=== PATIENT | female | born 1980 | race Caucasian/White ===

== ENCOUNTER → 2018-04-14 | Outpatient (CLI) | payer BC ==
--- NOTE | 2018-04-14 14:13 | US ---
EXAMINATION TYPE: US pelvis complete transvag DATE OF EXAM: 04/14/2018 COMPARISON: March 02, 2016 CLINICAL HISTORY: N92.6Irregular menstruation, unspecified. Stopped control. Hx of endometrios is. Irregular menses. Hx of fibroid. TECHNIQUE: Transvaginal (TV) and Transabdominal (TA) . Transabdominal sonographic images of the pel vis were acquired. Transvaginal sonographic images were medically necessary to better assess the fol lowing anatomy: Endometrium and ovaries Date of LMP: 03/30/2018, G0 EXAM MEASUREMENTS: Uterus: 7.1 x 4.5 x 3.1 cm Endometrial Stripe: 0.4 cm Right Ovary: 4.0 x 3.3 x 2.1 cm Left Ovary: 3.2 x 2.3 x 2.4 cm 1. Uterus: Anteverted Two hypoechoic lesions seen. 2- posterior midline = 1.0 x 0.6 cm. 2= Anter ior left- 0.8 x 1.1 x 0.7 cm 2. Endometrium: wnl 3. Right Ovary: Hypoechoic lesion - 2.3 x 2.8 x 2.3 cm 4. Left Ovary: two cystic appearing lesions seen, largest= 1.9 x 2.0 x 1.2 cm 5. Bilateral Adnexa: wnl 6. Posterior cul-de-sac: no free fluid Cervix- vascular isoechoic possible lesion - 0.9 x 0.7 x 0.5 cm IMPRESSION: 1. Leiomyomatous change of the uterus. 2. Complex right ovarian cystic lesion. This may reflect a hemorrhagic cyst however follow-up study i n 6 weeks can be performed for confirmation purposes.
== END | disposition home or self-care (01) ==
LOC: RADUSWWP 12:55
PROVIDERS: ATTEND Family Medicine
DX: D25.9 Leiomyoma of uterus, unspecified (principal); N83.201 Unspecified ovarian cyst, right side
CPT/HCPCS: 76830; 76856

== ENCOUNTER → 2018-05-05 | Outpatient (CLI) | payer BC ==
--- NOTE | 2018-05-07 14:46 | MR ---
EXAMINATION TYPE: MR knee LT wo con DATE OF EXAM: 05/05/2018 COMPARISON: Plain film 04/14/2008 HISTORY: Lt knee pain TECHNIQUE: Multiplanar, multisequence imaging of the knee is performed without IV contrast. FINDINGS: MEDIAL MENISCUS: Some increased signal is present in the posterior horn the medial meniscus, clear ex tension to the articular surface is not identified with certainty LATERAL MENISCUS: Anterior and posterior horns are intact without tear. CRUCIATE LIGAMENTS: The anterior and posterior cruciate ligaments are intact and unremarkable. COLLATERAL LIGAMENTS: The medial collateral ligament and lateral collateral ligament complex are inta ct and unremarkable. EXTENSOR MECHANISM: Visualized quadriceps and patellar tendons are intact. EFFUSION: Minimal effusion POPLITEAL CYST: There is a semimembranosus gastrocnemius cyst measuring approximately 6 0.4 x 2.2 x 1.6 cm. TRICOMPARTMENT SPACES: Maintained CARTILAGE: Question some irregularity of the patellar cartilage posteriorly, grade 2 to grade III cho ndromalacia BONE MARROW SIGNAL: Maintained OTHER: No additional significant abnormality is appreciated. IMPRESSION: Question abnormal cartilage at the posterior patella, local fluid present. Cornejo's cyst.
== END | disposition home or self-care (01) ==
LOC: RADMRIMAIN 20:33
PROVIDERS: ATTEND Orthopaedic Surgery
DX: M71.22 Synovial cyst of popliteal space [Baker], left knee (principal); M25.462 Effusion, left knee

== ENCOUNTER → 2018-06-12 | Outpatient (CLI) | payer BC ==
--- NOTE | 2018-06-12 13:55 | US ---
EXAMINATION TYPE: US pelvic complete DATE OF EXAM: 06/12/2018 COMPARISON: 04/14/2018 CLINICAL HISTORY: 37-year-old female N80.0 Endometriosis,N92.6 Irregular Menstruation. TECHNIQUE: Transabdominal (TA Date of LMP: 05/24/2018 FINDINGS: EXAM MEASUREMENTS: Uterus: 7.6 x 3.4 x 4.8 cm Endometrial Stripe: 1.2 cm Right Ovary: 4.5 x 3.7 x 2.8 cm Left Ovary: 2.7 x 3.5 x 2.3 cm 1. Uterus: Anteverted. There is a small subserosal fibroid along the posterior aspect of the uteri ne body that measures 1.2 x 0.8 x 1.2 cm 2. Endometrium: wnl 3. Right Ovary: cyst measures 2.8 x 2.7 x 2.2 cm. A hypoechoic lesion previously measured 2.8 x 2.2 x 2.3 cm. 4. Left Ovary: wnl 5. Bilateral Adnexa: wnl 6. Posterior cul-de-sac: no free fluid IMPRESSION: 1. Stable small 1.2 cm subserosal fibroid along the posterior uterine body. 2. A 2.8 cm dominant follicle or functional cyst in the right ovary.
== END ==
LOC: RADUSWWP 10:26
PROVIDERS: ATTEND Family Medicine
DX: D25.2 Subserosal leiomyoma of uterus (principal); N83.201 Unspecified ovarian cyst, right side
CPT/HCPCS: 76856

== ENCOUNTER → 2018-09-04 | Outpatient (CLI) | payer BC ==
[2018-09-04 07:54] LABS: Basophils % (A) 0 %; Eosinophils # (A) 0.1 k/uL (0-0.7); Eosinophils % (A) 2 %; HCT 42.3 % (34.0-46.0); HGB 13.7 gm/dL (11.4-16.0); Lymphocytes # (A) 3.2 k/uL (1.0-4.8); Lymphocytes % (A) 55 %; MCH 28.7 pg (25.0-35.0); MCHC 32.3 g/dL (31.0-37.0); MCV 88.8 fL (80.0-100.0); Mean Platelet Volume 7.5; Monocytes # (A) 0.2 k/uL (0-1.0); Monocytes % (A) 4 %; Neutrophils # (A) 2.3 k/uL (1.3-7.7); Neutrophils % (A) 39 %; Platelet Count 212 k/uL (150-450); RBC 4.76 m/uL (3.80-5.40); RDW 12.9 % (11.5-15.5); WBC 5.8 k/uL (3.8-10.6)
== END | disposition home or self-care (01) ==
LOC: LABPAT 06:49
PROVIDERS: ATTEND Obstetrics & Gynecology
DX: Z01.812 Encounter for preprocedural laboratory examination (principal)
CPT/HCPCS: 36415; 85025

== ENCOUNTER 2018-09-14 06:00 | Day surgery (SDC) | payer BC ==
[2018-09-12 12:52] VITALS: BMI 25.0
--- NOTE | 2018-09-13 16:27 | P.HPOB ---
History of Present Illness H&P Date: 09/13/18 Chief Complaint: Endometriosis: Pelvic pain Karina is a 37-year-old female who has chronic pelvic pain. She has failed outpatient therapy with nonsteroidal anti-inflammatories control pills. She is scheduled for a diagnostic laparoscopy possible robotic-assisted removal of endometriosis. Risks/benefits/alternatives to this procedure were discussed with the patient in detail and all questions were answered for her prior to proceeding to the operating room. We did discuss potentially empiric Lupron Depot versus Depo-Provera push versus IUD versus continuous OCP however she would like surgical verification of the disease process. All questions were answered for her prior to proceeding to the operating room. On physical exam vital signs are stable and afebrile. Heart regular, lungs clear, extremities without pain. Abdomen soft nontender with some mild pelvic pain. No other gross findings are noted. Past Medical History Past Medical History: No Reported History History of Any Multi-Drug Resistant Organisms: None Reported Additional Past Surgical History / Comment(s): RIGHT FOOT SURGERY X 2 , BILATERAL FOOT SURGERY X2, LAPAROSCOPIC EXAM X2 Past Anesthesia/Blood Transfusion Reactions: No Reported Reaction Smoking Status: Never smoker - Past Family History Mother Family Medical History: No Reported History Medications and Allergies Home Medications Medication Instructions Recorded Confirmed Type Acetaminophen Tab [Tylenol Tab] 650 mg PO Q4H PRN 09/12/18 09/12/18 History Cyanocobalamin (Vitamin B-12) 1,000 mcg PO DAILY 09/12/18 09/12/18 History [Vitamin B-12] Ibuprofen [Motrin] 800 mg PO Q8H PRN 09/12/18 09/12/18 History Multivitamin [Multivitamins Adult 1 each PO DAILY 09/12/18 09/12/18 History Gummies] Allergies Allergy/AdvReac Type Severity Reaction Status Date / Time celecoxib [From Celebrex] Allergy BLEEDING Verified 09/12/18 12:18 FROM PORES" Penicillins Allergy Rash/Hives, Verified 09/12/18 12:16 SWELLING OF THROAT Exam Osteopathic Statement: *. No significant issues noted on an osteopathic structural exam other than those noted in the History and Physical/Consult.
[~2018-09-14 06:00] MED LIST: DEXAMETHASONE SOD PHOSPHATE 10 MG/ML 1 ML VIAL IV ONE; MIDAZOLAM (PF) 2 MG/2 ML VIAL IV PRN; ONDANSETRON 4 MG/2 ML VIAL IVP ONE; Pre Op ABX Message 1 EACH MISC MISCELLANE ONE; SCOPOLAMINE 1.5MG/72HR PATCH TRANSDERM ONE
[2018-09-14] MEDS: LACTATED RINGERS 1,000 ML IV SCH ×2 (06:34→10:33)
[2018-09-14] MEDS ORDERED: LIDOCAINE 1% 20 ML VIAL (10MG/ML) FOR IV START INTRADERMA ONE (06:35)
[2018-09-14] MEDS ORDERED: PROPOFOL 10 MG/ML 20 ML VIAL IV ONE (07:31)
[2018-09-14] MEDS ORDERED: DEXAMETHASONE SOD PHOS (MDV) 100 MG/10 ML VIAL ONE (07:31)
[2018-09-14] MEDS ORDERED: ROCURONIUM BROMIDE 10 MG/ML 10 ML VIAL IV ONE (07:31)
[2018-09-14] MEDS ORDERED: fentaNYL (PF) 50 MCG/ML 2 ML AMP ONE (07:31)
[2018-09-14] MEDS ORDERED: MIDAZOLAM 2 MG/2 ML VIAL ONE (07:31)
[2018-09-14] MEDS ORDERED: ONDANSETRON 4 MG/2 ML VIAL ONE (07:31)
[2018-09-14] MEDS ORDERED: LIDOCAINE 1% INJ 10MG/ML (20 ML MDV) ONE (07:31)
[2018-09-14] MEDS ORDERED: NEOSTIGMINE 1 MG/ML 10 ML VIAL ONE (07:31)
[2018-09-14] MEDS ORDERED: GLYCOPYRROLATE 0.2 MG/ML 2 ML VIAL ONE (07:31)
[2018-09-14] MEDS ORDERED: BUPIVACAINE (PF) 0.25% 30 ML VIAL SQ ONE (08:00)
--- NOTE | 2018-09-14 08:33 | P.OP ---
Date of Procedure: 09/14/18 Preoperative Diagnosis: Pelvic pain: History of endometriosis Postoperative Diagnosis: Same with stage I endometriosis and right ovarian cyst Procedure(s) Performed: Diagnostic laparoscopy with electrofulguration of endometriosis and cystotomy of right ovarian cyst Anesthesia: EDUARDO Surgeon: Geraldo Garrett Estimated Blood Loss (ml): 2 IV fluids (ml): 600 Urine output (ml): 100 Pathology: none sent Condition: stable Disposition: same day Operative Findings: Stage I endometriosis with approximately 6-7 individual lesions. There was a red lesion in the deep cul-de-sac. There was powder burn lesions on both the right and left uterosacral ligaments and then a few scattered cystic lesions. All of visualize lesions were electrofulgurated Description of Procedure: Patient was taken to the operating suite where a general anesthetic was found be adequate. She was prepped and draped in normal sterile fashion and placed in the dorsal lithotomy position. Initially a speculum was inserted into the vagina and anterior lip of the cervix was identified and grasped with a single- tooth tenaculum. Cervix was then sounded to 8 cm and dilated. Manipulator was then inserted without difficulty and a red rubber catheter was placed. Other incidents removed from the vagina and gloves were changed. Attention was then turned to the abdominal portion procedure where 2 mL of quarter percent Marcaine was injected periumbilically. Through this injected anesthetic a 5 mm skin incision was made and through this incision under direct visualization with an optical trocar and sleeve the camera was inserted. Once peritoneal placement was assured gas was left fully insufflate the abdomen and patient was then placed in steep Trendelenburg position. A second 5 mm skin incision was then made approximately 10 cm lateral to the umbilicus on the left-hand side and a 5 mm trocar and sleeve were inserted. Observations the pelvis were then done. All endometrial implants that were visualized were electrofulgurated. There was a cyst on the right ovary which was grasped with a J-hook and using blunt dissection it was drained. J-hook was also used for the electrode fulguration. Once this was completed seeing no other lesions or abnormalities other than incidental finding of fibroid in the posterior uterus and a pedunculated anterior fibroid. Incidents were removed. Gas was allowed to expel from the abdomen 5 deep breaths were provided. Once this was completed 4- 0 Vicryl was used to close incision subcuticularly and the remaining quarter percent Marcaine was then injected around these incisions. Instruments were then removed from vagina. Sponge, lap, needle counts were all correct 2. Patient was then taken to the recovery room in stable and satisfactory condition. Plan - Discharge Summary Discharge Rx Participant: Yes New Discharge Prescriptions: New Acetaminophen-Codeine 300-30mg [Tylenol #3] 1 tab PO Q4H PRN #30 tablet PRN Reason: Pain Ibuprofen [Motrin] 600 mg PO Q6HR PRN #30 tab PRN Reason: Pain No Action Cyanocobalamin (Vitamin B-12) [Vitamin B-12] 1,000 mcg PO DAILY Acetaminophen Tab [Tylenol Tab] 650 mg PO Q4H PRN PRN Reason: Pain Multivitamin [Multivitamins Adult Gummies] 1 each PO DAILY Ibuprofen [Motrin] 800 mg PO Q8H PRN PRN Reason: Pain Discharge Medication List Acetaminophen Tab [Tylenol Tab] 650 mg PO Q4H PRN 09/12/18 [History] Cyanocobalamin (Vitamin B-12) [Vitamin B-12] 1,000 mcg PO DAILY 09/12/18 [ History] Ibuprofen [Motrin] 800 mg PO Q8H PRN 09/12/18 [History] Multivitamin [Multivitamins Adult Gummies] 1 each PO DAILY 09/12/18 [History] Acetaminophen-Codeine 300-30mg [Tylenol #3] 1 tab PO Q4H PRN #30 tablet [Rx] Ibuprofen [Motrin] 600 mg PO Q6HR PRN #30 tab 09/14/18 [Rx] Follow up Appointment(s)/Referral(s): Geraldo Garrett DO [Doctor of Osteopathic Medicine] - 10 Days Activity/Diet/Wound Care/Special Instructions: No heavy lifting, limit stairs and driving, and pelvic rest. If any high temperatures, heavy bleeding, or severe pain call my office Discharge Disposition: HOME SELF-CARE
[2018-09-14 08:34] VITALS: TEMP 98
[2018-09-14] MEDS: HYDROmorphone 0.5 MG/0.5 ML SYRINGE IVP PRN ×4 (08:39→09:00)
[2018-09-14 08:49] VITALS: RESP 16
[2018-09-14] MEDS ORDERED: PROMETHAZINE INJ 25 MG/ML 1 ML VIAL IVPB ONE (08:53)
[2018-09-14] MEDS ORDERED: Acetaminophen-Codeine 300-30mg TAB PO ONE (11:27)
[2018-09-14 11:39] VITALS: BP 110/66; PULSE 62
== END 2018-09-14 12:19 | disposition home or self-care (01) ==
LOC: OR 06:00
PROVIDERS: ATTEND Obstetrics & Gynecology
DX: N80.9 Endometriosis, unspecified (principal); N83.201 Unspecified ovarian cyst, right side; G89.29 Other chronic pain; D25.9 Leiomyoma of uterus, unspecified; Z88.0 Allergy status to penicillin; Z88.2 Allergy status to sulfonamides; Z88.6 Allergy status to analgesic agent
CPT/HCPCS: 81025; 58662; 49322; 57800; J2250; J1100 ×2; J2550; J2710; J2405; J2001; J3010; J2704; J1170

== ENCOUNTER → 2019-03-02 | Outpatient (CLI) | payer BC ==
--- NOTE | 2019-03-03 09:27 | MR ---
EXAMINATION TYPE: MR knee RT wo con DATE OF EXAM: 03/02/2019 COMPARISON: Outside x-ray dated 02/16/2019 HISTORY: RT knee pain, outside films on pacs TECHNIQUE: Multiplanar, multisequence imaging of the right knee is performed without IV contrast. FINDINGS: There is a moderate suprapatellar bursal fluid collection. Patellar and quadriceps tendons are intact. Abnormal signal within the fluid could be associated with medial plica syndrome. There is fibrillation and chondromalacia patellar cartilage. Retinaculum intact. Narrowing the latera l patellar facet particularly noted. There is marrow edema or contusion involving the patella Anterior cruciate and posterior cruciate ligaments have a normal appearance. Medial collateral and la teral collateral ligaments have a normal appearance. Popliteus tendon intact. No sizable popliteal fossa cyst. No diagnostic evidence of meniscal tear. Intrasubstance signal poste rior horn medial meniscus most typical of myxoid degeneration. IMPRESSION: 1. No evidence of ligamentous or meniscal tear. Findings involving posterior horn medial meniscus mos t typical of myxoid degeneration. 2. Moderate-sized suprapatellar bursal fluid collection. There is grade II chondromalacia involving t he patellar cartilage with loss of joint space of the lateral patellar facet. No erosive changes. Mar row edema throughout the patella could be reactive. Correlate for bone contusion. No fracture identif ied. 3. Correlate for medial plica syndrome.
== END | disposition home or self-care (01) ==
LOC: RADMRIMAIN 20:22
PROVIDERS: ATTEND Orthopaedic Surgery
DX: M22.41 Chondromalacia patellae, right knee (principal); M23.321 Other meniscus derangements, posterior horn of medial meniscus, right knee; M25.861 Other specified joint disorders, right knee

== ENCOUNTER → 2019-06-15 | Outpatient (CLI) | payer BC ==
[2019-06-15 10:24] LABS: Basophils % (A) 0 %; Eosinophils % (A) 1 %; HGB 13.7 gm/dL (11.4-16.0); Lymphocytes # (A) 2.4 k/uL (1.0-4.8); Lymphocytes % (A) 47 %; MCH 29.2 pg (25.0-35.0); MCHC 33.5 g/dL (31.0-37.0); MCV 87.2 fL (80.0-100.0); Mean Platelet Volume 7.4; Monocytes # (A) 0.2 k/uL (0-1.0); Monocytes % (A) 4 %; Neutrophils # (A) 2.4 k/uL (1.3-7.7); Neutrophils % (A) 47 %; Platelet Count 230 k/uL (150-450); RDW 12.8 % (11.5-15.5)
[2019-06-15 10:27] LABS: Potassium 4.1 mmol/L (3.5-5.1)
== END | disposition home or self-care (01) ==
LOC: LABPAT 09:52
PROVIDERS: ATTEND Orthopaedic Surgery
DX: Z01.812 Encounter for preprocedural laboratory examination (principal); M23.91 Unspecified internal derangement of right knee
CPT/HCPCS: 36415; 80051; 85025

== ENCOUNTER 2019-07-05 12:39 | Day surgery (SDC) | payer BC ==
[2019-07-03 15:11] VITALS: BMI 28.8
--- NOTE | 2019-07-04 18:54 | HP ---
HISTORY AND PHYSICAL DATE OF SURGERY: 07/05/2019 Karina Meza is a 38-year-old patient seen with progressive right knee pain. We discussed options for treatment. She elected to proceed with arthroscopy. Consent was obtained. PAST MEDICAL HISTORY: Past medical history is noncontributory. PAST SURGICAL HISTORY: Foot surgery. DAILY MEDICATIONS: Ibuprofen. ALLERGIES: PENICILLIN, SULFA. SOCIAL HISTORY: She denies tobacco use. PHYSICAL EVALUATION OF THE RIGHT KNEE: Range of motion is +3 to 125. There is a mild to moderate effusion present. Tenderness along the medial joint line. Positive medial Najma's. Ligaments are stable. Hip rotation is without pain. Distal neurovascular examination is intact. IMAGING: Radiographs of the right knee revealed mild osteoarthritic changes. Right knee MRI revealed joint effusion, patellar chondromalacia, abnormal signal within the posterior medial meniscus. IMPRESSION: Internal derangement of right knee with medial meniscal tear versus osteochondral tear. PLAN: Right knee arthroscopy with partial meniscectomy, possible chondroplasty and probable partial synovectomy. MMODL / IJN: [id number] /
[~2019-07-05 12:39] MED LIST changes: +CLINDAMYCIN 900 MG in DEXTROSE 5% IN WATER 50 ML IVPB ONE; +LACTATED RINGERS 1,000 ML IV SCH; -MIDAZOLAM (PF) 2 MG/2 ML VIAL IV PRN; +MIDAZOLAM 2 MG/2 ML VIAL IV PRN; -ONDANSETRON 4 MG/2 ML VIAL IVP ONE
[2019-07-05] MEDS: ONDANSETRON 4 MG/2 ML VIAL IVP ONE ×2 (13:15→15:09)
[2019-07-05] MEDS ORDERED: fentaNYL (PF) 50 MCG/ML 2 ML AMP ONE (14:14)
[2019-07-05] MEDS ORDERED: HYDROmorphone (PF) 1 MG/ML ONE (14:14)
[2019-07-05] MEDS ORDERED: PROPOFOL 10 MG/ML 20 ML VIAL IV ONE (14:14)
[2019-07-05] MEDS ORDERED: MIDAZOLAM 2 MG/2 ML VIAL ONE (14:14)
[2019-07-05] MEDS ORDERED: LIDOCAINE 1% INJ 10MG/ML (20 ML MDV) ONE (14:14)
[2019-07-05] MEDS ORDERED: BUPIVACAIN-EPI 0.25%-1:200,000 30 ML VIAL INTRAARTIC ONE (14:19)
[2019-07-05 14:59] VITALS: TEMP 97
[2019-07-05] MEDS: HYDROmorphone 1 MG/ML 1 ML SYRINGE IVP ONE ×4 (15:00→15:33)
--- NOTE | 2019-07-05 15:01 | P.OP ---
Date of Procedure: 07/05/19 Preoperative Diagnosis: Internal derangement right knee Postoperative Diagnosis: 1. Tear medial meniscus right knee 2. Grade 2 chondromalacia medial femoral condyle right knee 3. 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 Reactive synovitis medial, lateral and suprapatellar compartments right knee Procedure(s) Performed: 1. Arthroscopic partial medial meniscectomy right knee 2. Arthroscopic chondroplasty medial femoral condyle right knee 3. Arthroscopic chondroplasty patella right knee 4. Arthroscopic partial synovectomy medial, lateral and suprapatellar compartments right knee Anesthesia: ELIZABETHA, local Surgeon: Kin Raymundo Estimated Blood Loss (ml): 5 Pathology: none sent Condition: stable Disposition: PACU Indications for Procedure: 38-year-old patient seen with progressive right knee pain. After treatment options were discussed, she elected to proceed with arthroscopy. Operative Findings: See description of procedure Description of Procedure: Patient was taken to the operative suite. Patient underwent a general anesthetic by the department of anesthesia. Patient was given preoperative antibiotics. The right lower extremity was placed in a well-padded arthroscopic leg bryant. The right leg was prepped and draped in the normal sterile orthopedic fashion. A lateral parapatellar and suprapatellar incision was made. Trochars were inserted. Arthroscopy was initiated. Suprapatellar pouch revealed diffuse thick reactive synovitis. The patellofemoral joint appeared to articulate congruently. There was grade 3/4 chondromalacia of the patella with diffuse osteochondral tears present. The scope was guided into the medial gutter. No loose bodies or plica were identified. The scope was then guided into the medial compartment. A medial parapatellar incision was made. Trocar i nserted followed by probe. It was a radial tear posterior horn medial meniscus. There were grade 2 chondromalacia changes of the medial femoral condyle with large osteochondral flap tears present. There was thick reactive synovitis anteriorly. I performed a partial medial meniscectomy getting down to stable meniscal tissue. I performed a chondroplasty of the medial femoral condyle. I performed a partial synovectomy decompressing the thick reactive synovitis. The residual meniscus was stable. There was good decompression of the synovitis. There was good stability about the residual osteochondral surface medial femoral condyle. Scope and probe were then guided into the intercondylar notch. Cruciates were identified, probed and found to be table. The scope and probe were then guided into lateral compartment. The lateral meniscus was found to be stable. There was no significant chondromalacia. There was thick reactive synovitis anteriorly. I performed a partial synovectomy decompressing the reactive synovitis. The shaver was removed. There was good decompression of the synovitis. The scope was in guided back into the suprapatellar compartment. I introduced a motorized shaver into the suprapatellar compartment. I debrided some piecemeal fragments of meniscus I encountered. I performed a chondroplasty of the patella. I performed a partial synovectomy. Shaver was removed. There was good stability about the residual osteochondral surface of the patella. We again noted grade 3-4 chondromalacia changes there. I took one more look on the entire knee, no residual debris. Instruments were now removed from the joint. The joint was infiltrated with .25% Marcaine. Steri-Strips were applied to the portal sites. Sterile dressings were applied. The patient was placed into a PHIL hose. No tourniquet was utilized. The patient was awakened, transferred to a bed and taken to recovery stable satisfactory condition.
[2019-07-05] MEDS ORDERED: KETOROLAC 30 MG/ML 1 ML VIAL IVP ONE (15:09)
[2019-07-05] MEDS ORDERED: diphenhydrAMINE 50 MG/ML 1 ML VIAL IVP ONE (15:22)
[2019-07-05] MEDS ORDERED: HYDROcodone/APAP 5-325MG 1 EACH TAB PO ONE (16:08)
[2019-07-05 16:16] VITALS: RESP 18
[2019-07-05 17:20] VITALS: BP 105/69; PULSE 79
== END 2019-07-05 17:32 | disposition home or self-care (01) ==
LOC: OR 12:39
PROVIDERS: ATTEND Orthopaedic Surgery
DX: M23.221 Derangement of posterior horn of medial meniscus due to old tear or injury, right knee (principal); M22.41 Chondromalacia patellae, right knee; M65.861 Other synovitis and tenosynovitis, right lower leg; Z88.2 Allergy status to sulfonamides; Z88.0 Allergy status to penicillin; Z88.6 Allergy status to analgesic agent; Z79.1 Long term (current) use of non-steroidal anti-inflammatories (NSAID); Z79.3 Long term (current) use of hormonal contraceptives
CPT/HCPCS: 81025; 29881; J2250; J1200; J1100; J2405; J2001; J3010; J1885; J1170; J2704

== ENCOUNTER → 2019-09-28 | Outpatient (CLI) | payer BC ==
[2019-09-28 18:26] LABS: Potassium 4.4 mmol/L (3.5-5.1)
[2019-09-28 18:30] LABS: Basophils % (A) 0 %; Eosinophils # (A) 0.1 k/uL (0-0.7); Eosinophils % (A) 1 %; HCT 40.6 % (34.0-46.0); HGB 13.3 gm/dL (11.4-16.0); Lymphocytes # (A) 2.3 k/uL (1.0-4.8); Lymphocytes % (A) 39 %; MCH 28.4 pg (25.0-35.0); MCHC 32.8 g/dL (31.0-37.0); MCV 86.4 fL (80.0-100.0); Mean Platelet Volume 9.6; Monocytes # (A) 0.3 k/uL (0-1.0); Monocytes % (A) 5 %; Neutrophils % (A) 51 %; Platelet Count 231 k/uL (150-450); RDW 12.8 % (11.5-15.5); WBC 5.8 k/uL (3.8-10.6)
== END | disposition home or self-care (01) ==
LOC: LABPAT 16:04
PROVIDERS: ATTEND Orthopaedic Surgery
DX: Z01.812 Encounter for preprocedural laboratory examination (principal); M23.92 Unspecified internal derangement of left knee
CPT/HCPCS: 80051; 81025; 85025

== ENCOUNTER 2019-10-11 07:17 | Day surgery (SDC) | payer BC ==
[2019-10-09 12:07] VITALS: BMI 28.8
--- NOTE | 2019-10-10 20:23 | HP ---
HISTORY AND PHYSICAL DATE OF SURGERY: 10/11/2019 Karina Meza is a 39-year-old patient seen with progressive left knee pain. We discussed options for treatment. She elected to proceed with arthroscopy. Consent was obtained. PAST MEDICAL HISTORY: Noncontributory. PAST SURGICAL HISTORY: Right knee arthroscopy, foot surgery. DAILY MEDICATIONS: Ibuprofen as needed. ALLERGIES: PENICILLIN, SULFA. SOCIAL HISTORY: She denies tobacco use. PHYSICAL EVALUATION OF THE LEFT KNEE: Range of motion is 0 to 130. Tenderness, medial joint line. Positive medial Najma's. Crepitus along the patellofemoral joint with range of motion. Ligaments stable. Hip rotation without pain. Distal neurovascular exam intact. RADIOGRAPHS: Left knee radiographs revealed mild osteoarthritic changes. Left knee MRI revealed an abnormal signal through the medial meniscus suspicious for medial meniscal tear. There is also joint effusion. IMPRESSION: 1. Internal derangement of the left knee with medial meniscal tear. 2. Left knee osteoarthritis. PLAN: Left knee arthroscopy with partial meniscectomy and partial synovectomy, probable chondroplasty and debridement. MMODL / IJN: [id number] /
[~2019-10-11 07:17] MED LIST changes: -CLINDAMYCIN 900 MG in DEXTROSE 5% IN WATER 50 ML IVPB ONE; +LIDOCAINE 1% (10MG/ML) FOR IV START INTRADERMA PRN; +METOCLOPRAMIDE 5 MG/ML 2 ML VIAL IVP PRN; -MIDAZOLAM 2 MG/2 ML VIAL IV PRN; -Pre Op ABX Message 1 EACH MISC MISCELLANE ONE; -SCOPOLAMINE 1.5MG/72HR PATCH TRANSDERM ONE
[2019-10-11] MEDS: ONDANSETRON 4 MG/2 ML VIAL IVP ONE ×2 (07:57→09:20)
[2019-10-11] MEDS ORDERED: PROPOFOL 10 MG/ML 20 ML VIAL IV ONE (08:35)
[2019-10-11] MEDS ORDERED: MIDAZOLAM 2 MG/2 ML VIAL ONE (08:35)
[2019-10-11] MEDS ORDERED: SUCCINYLCHOLINE CHLORIDE 100 MG/5 ML SYR IV ONE (08:35)
[2019-10-11] MEDS ORDERED: fentaNYL (PF) 50 MCG/ML 2 ML AMP ONE (08:35)
[2019-10-11] MEDS ORDERED: LIDOCAINE 1% INJ 10MG/ML (20 ML MDV) ONE (08:35)
[2019-10-11] MEDS ORDERED: BUPIVACAIN-EPI 0.25%-1:200,000 30 ML VIAL INTRAARTIC ONE (08:35)
[2019-10-11 09:14] VITALS: TEMP 97
[2019-10-11] MEDS ORDERED: KETOROLAC 30 MG/ML 1 ML VIAL IVP ONE (09:20)
[2019-10-11] MEDS: HYDROmorphone 0.5 MG/0.5 ML SYRINGE IVP PRN ×4 (09:20→09:50)
--- NOTE | 2019-10-11 09:24 | P.OP ---
Date of Procedure: 10/11/19 Preoperative Diagnosis: Internal derangement left knee Postoperative Diagnosis: 1. Tear medial meniscus left knee 2. Grade 3 chondromalacia medial femoral condyle left knee 3. Grade 3 chondromalacia patella left knee 4. Reactive synovitis medial, lateral and suprapatellar compartments left knee Procedure(s) Performed: 1. Arthroscopic partial medial meniscectomy left knee 2. Arthroscopic chondroplasty medial femoral condyle left knee 3. Arthroscopic chondroplasty patella left knee 4. Arthroscopic partial synovectomy medial, lateral and suprapatellar compartments left knee Anesthesia: ELIZABETHA, local Surgeon: Kin Raymundo Estimated Blood Loss (ml): 7 Pathology: none sent Condition: stable Disposition: PACU Indications for Procedure: 39-year-old patient seen with progressive left knee pain. After treatment options were discussed, she elected to proceed with arthroscopy. Operative Findings: See description of procedure Description of Procedure: Patient was taken to the operative suite. Patient underwent a general anesthetic by the department of anesthesia. Patient was given preoperative antibiotics. The left lower extremity was placed in a well-padded arthroscopic leg bryant. The left leg was prepped and draped in the normal sterile orthopedic fashion. A lateral parapatellar and suprapatellar incision was made. Trochars were inserted. Arthroscopy was initiated. Suprapatellar pouch revealed diffuse thick reactive synovitis. The patellofemoral joint appeared or tingling congruently. There with grade 3 chondromalacia of the patella mainly involving the lateral facet with diffuse osteochondral tears present. The scope was guided into the medial gutter. No loose bodies or plica were identified. The scope was then guided into the medial compartment. A medial parapatellar incision was made. Trocar inserted followed by probe. There was a radial tear posterior horn medial meniscus. There were grade 3 chondromalacia changes of the medial femoral condyle with some diffuse osteochondral tears present. There was thick reactive synovitis anteriorly. I performed a partial medial meniscectomy. I performed a chondroplasty of the medial femoral condyle. I performed a partial synovectomy. The residual meniscus was stable. The residual osteochondral surface of the femoral condyle was stable. There was good decompression of the synovitis. Scope and probe were then guided into the intercondylar notch. Cruciates were identified, probed and found to be stable. The scope and probe were then guided into lateral compartment. The lateral meniscus was probed and found to be stable. There was no significant chondromalacia. There was some reactive synovitis anteriorly. Partial synovectomy was performed. There was good decompression of the synovitis. The scope was in guided back into the suprapatellar compartment. I introduced a motorized shaver into the suprapatellar compartment. I debrided some piecemeal fragments of meniscus I encountered. I performed a chondroplasty of the patella getting down to stable osteochondral tissue. I performed a partial synovectomy. Shaver was removed. The residual osteochondral surface was stable. There was good decompression of the synovitis. Instruments were now removed from the joint. The joint was infiltrated with .25% Marcaine. Steri-Strips were applied to the portal sites. Sterile dressings were applied. The patient was placed into a PHIL hose. No tourniquet was utilized. The patient was awakened, transferred to a bed and taken to recovery stable satisfactory condition.
[2019-10-11 09:34] VITALS: RESP 16
[2019-10-11] MEDS ORDERED: Acetaminophen-Codeine 300-30mg TAB PO ONE (10:45)
[2019-10-11 10:53] VITALS: PULSE 73
[2019-10-11 11:08] VITALS: BP 117/77
== END 2019-10-11 11:13 | disposition home or self-care (01) ==
LOC: OR 07:17
PROVIDERS: ATTEND Orthopaedic Surgery
DX: S83.242A Other tear of medial meniscus, current injury, left knee, initial encounter (principal); X58.XXXA Exposure to other specified factors, initial encounter; M22.42 Chondromalacia patellae, left knee; M65.862 Other synovitis and tenosynovitis, left lower leg; M17.12 Unilateral primary osteoarthritis, left knee; K21.9 Gastro-esophageal reflux disease without esophagitis; Z83.49 Family history of other endocrine, nutritional and metabolic diseases; Z98.890 Other specified postprocedural states; Z79.1 Long term (current) use of non-steroidal anti-inflammatories (NSAID); Z79.891 Long term (current) use of opiate analgesic; Z88.6 Allergy status to analgesic agent; Z91.09 Other allergy status, other than to drugs and biological substances; Z88.0 Allergy status to penicillin; Z88.2 Allergy status to sulfonamides
CPT/HCPCS: 29881; 29876; 81025; J2250; J1100; J0690; J2405; J2001; J3010; J1885; J0330; J2704; J1170

== ENCOUNTER → 2020-12-19 | Outpatient (CLI) | payer BC ==
--- NOTE | 2020-12-19 11:43 | MM ---
Reason for exam: screening (asymptomatic). Baseline mammogram. History: Taking hormonal contraceptives for 20 years. Physical Findings: Nurse did not find any significant physical abnormalities on exam. MG 3D Screening Mammo W/Cad Bilateral CC and MLO view(s) were taken. The breast tissue is heterogeneously dense. This may lower the sensitivity of mammography. Focal asymmetry upper outer right breast. These results were verbally communicated with the patient and result sheet given to the patient on 12/19/20. ASSESSMENT: Incomplete: need additional imaging evaluation, BI-RAD 0 RECOMMENDATION: Special view mammogram of the right breast.
--- NOTE | 2020-12-19 11:44 | MM ---
Reason for exam: additional evaluation requested from abnormal screening. History: Taking hormonal contraceptives for 20 years. Physical Findings: Breast exam preformed at baseline screening. MG 3D Work Up W/Cad RT Spot compression CC, spot compression MLO, and LM view(s) were taken of the right breast. The breast tissue is heterogeneously dense. This may lower the sensitivity of mammography. There is no discrete abnormality including area of concern. ASSESSMENT: Probably benign, BI-RAD 3 RECOMMENDATION: Follow-up diagnostic mammogram of the right breast in 6 months.
== END | disposition home or self-care (01) ==
LOC: RADMAMWWP 09:57
PROVIDERS: ATTEND Family Medicine
DX: Z12.31 Encounter for screening mammogram for malignant neoplasm of breast (principal); R92.2 Inconclusive mammogram
CPT/HCPCS: 77061; 77063; 77065; 77067

== ENCOUNTER → 2021-01-30 | Outpatient (CLI) | payer BC | END | disposition home or self-care (01) ==

== ENCOUNTER 2021-08-21 06:47 | Day surgery (SDC) | payer BC ==
[2021-08-19 10:51] VITALS: BMI 32.6
[~2021-08-21 06:47] MED LIST changes: -DEXAMETHASONE SOD PHOSPHATE 10 MG/ML 1 ML VIAL IV ONE; -METOCLOPRAMIDE 5 MG/ML 2 ML VIAL IVP PRN
[2021-08-21] MEDS ORDERED: LIDOCAINE 1% (10MG/ML) FOR IV START INTRADERMA ONE (07:25)
[2021-08-21] MEDS ORDERED: LIDOCAINE 1% INJ 10MG/ML (20 ML MDV) ONE (07:34)
[2021-08-21] MEDS ORDERED: PROPOFOL 10 MG/ML 20 ML VIAL IV ONE (07:34)
[2021-08-21 07:36] VITALS: TEMP 97.2
--- NOTE | 2021-08-21 07:44 | P.PCN ---
Date of Procedure: 08/21/21 Procedure(s) Performed: BRIEF HISTORY: Patient is a 40-year-old, pleasant, white female scheduled for an upper endoscopy as part of evaluation of epigastric and right upper quadrant abdominal pain for the last 1 year duration. She is currently on omeprazole 20 mg daily with some help. Gallbladder workup was negative. PROCEDURE PERFORMED: Esophagogastroduodenoscopy with biopsy. PREOPERATIVE DIAGNOSIS: Epigastric and right upper quadrant abdominal pain of 1 year duration. IV sedation per anesthesia. PROCEDURE: After informed consent was obtained, the patient was brought into the endoscopy unit. IV sedation was administered by Anesthesia under continuous monitoring. Initially the Olympus GIF-140 video endoscope was inserted into the mouth. Esophagus intubated without any difficulty. It was gradually advanced into the stomach and duodenum and carefully examined. The bulb and the second part of the duodenum appeared normal. Biopsies were done from the duodenum to rule out celiac disease The scope at this time was withdrawn to the stomach, adequately insufflated with air, and upon careful examination, mucosa of the antrum, linear areas of erythema and biopsies were done from this area. The body, cardia and the fundus appeared normal. The scope was then withdrawn into the esophagus. The GE junction was located at 39 cm from the incisors. Small sliding type hiatal hernia noted. The esophagus appeared normal. There were no erosions or ulcerations seen , biopsies were done from the distal esophagus and the patient tolerated the procedure well. IMPRESSION: 1. Linear erythema in the antrum consistent with mild antral gastritis. 2. Small sliding Hiatal hernia but no evidence of esophagitis. RECOMMENDATIONS: The findings of this examination were discussed with the patient as well as her family. She was advised to follow with the biopsy results. She will continue with omeprazole 20 mg daily and continue to follow antireflux measures.
[2021-08-21 07:52] VITALS: RESP 16
[2021-08-21 08:01] VITALS: BP 116/77; PULSE 96
== END 2021-08-21 08:25 | disposition home or self-care (01) ==
LOC: ORWHC2ENDO 06:47
PROVIDERS: ATTEND Internal Medicine Gastroenterology
DX: K29.70 Gastritis, unspecified, without bleeding (principal); K44.9 Diaphragmatic hernia without obstruction or gangrene
CPT/HCPCS: 43239; 81025; J2001; J2704; 88305; 88342

== ENCOUNTER → 2024-08-13 | Outpatient (CLI) | payer BC ==
--- NOTE | 2024-08-13 11:22 | MM ---
Reason for Exam: Screening (asymptomatic). Last mammogram was performed 3 year(s) and 8 month(s) ago. Patient History: Menarche at age 13. Patient has no children. Patient used Hormonal Contraceptives for 20 years. Last menstrual period: 07/27/2024 Risk Values: Lakshmi 5 year model risk: 0.8%. NCI Lifetime model risk: 10.8%. Prior Study Comparison: 12/19/2020 Bilateral Screening Mammogram, [facility]. 12/19/2020 Right Diagnostic Mammogram, [facility]. 09/08/2021 Right Diagnostic Mammogram, [facility]. Tissue Density: There are scattered areas of fibroglandular density. Findings: Analyzed By CAD. Focal asymmetry upper outer quadrant left breast is unchanged. There is no suspicious group of microcalcifications or new suspicious mass in either breast. Overall Assessment: Benign, BI-RAD 2 Management: Screening Mammogram of both breasts in 1 year. . Patient should continue monthly self-breast exams. A clinical breast exam by your physician is recommended on an annual basis. This exam should not preclude additional follow-up of suspicious palpable abnormalities. Note on Lakshmi scores and lifetime risk: 1. A Lakshmi score greater than 3% is considered moderate risk. If this is the case, consider specialist referral to assess eligibility for a risk reducing agent. 2. If overall lifetime risk for the development of breast cancer is 20% or higher, the patient may qualify for future screening with alternating mammogram and breast MRI. [facility], , 08/13/2024 11:19 AM. Electronically signed and approved by: Sudha Yepez M.D. Radiologist
== END | disposition home or self-care (01) ==
LOC: RADMAMWWP 07:45
PROVIDERS: ATTEND Family Medicine
DX: Z12.31 Encounter for screening mammogram for malignant neoplasm of breast (principal); R92.323 Mammographic fibroglandular density, bilateral breasts; Z92.0 Personal history of contraception
CPT/HCPCS: 77063; 77067